=== PATIENT | male | born 2000 | race Two or more races ===

== ENCOUNTER 2020-03-04 16:52 | Emergency (ER) | payer BC ==
[~2020-03-04] VITALS: Ht 175.3 cm; Wt 64.5 kg
--- NOTE | 2020-03-04 17:26 | NUR ---
LPN CMA: PT AMBULATORY WITH STEADY GAIT TO ROOM AT THIS TIME. GARRY
--- NOTE | 2020-03-04 17:43 | NUR ---
ASSUMED CARE OF PATIENT. PATIENT REPORTS HE HAS HAD SOME CHEST PAIN WITH SOB ON AND OFF OVER THE LAST FEW MONTHS. TODAY, PATIENT STARTED FEELING SOME CHEST PRESSURE WITH PALPITATIONS. 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 NSR NOTED. VS STABLE. CALL LIGHT IN PLACE. DR GRANADO IN ROOM. WILL CONTINUE TO MONITOR.
--- NOTE | 2020-03-04 18:14 | NUR ---
PT RESTING IN ROOM. NO ACUTE DISTRESS NOTED. VS STABLE. CALL LIGHT IN PLACE. WILL CONTINUE TO MONITOR.
[2020-03-04 18:23] LABS: BASOPHILS # (AUTO) 0.02 x10^3/uL (0-0.1); BASOPHILS % (AUTO) 0 % (0-1); EOSINOPHILS # (AUTO) 0.01 x10^3/uL (0-0.4); EOSINOPHILS % (AUTO) 0 % (1-7); LYMPHOCYTES # (AUTO) 1.03 x10^3/uL (1-3.4); LYMPHOCYTES % (AUTO) 14 % (22-44); MD NO; MEAN CORPUSCULAR HEMOGLOBIN 32.7 pg (27.5-34.5); MEAN CORPUSCULAR HGB CONC 34.3 g/dL (33.2-36.2); MEAN CORPUSCULAR VOLUME 95.3 fL (81-97); MEAN PLATELET VOLUME 8.9 fL (7.4-10.4); MONOCYTES # (AUTO) 0.48 x10^3/uL (0.2-0.8); MONOCYTES % (AUTO) 7 % (2-9); NEUTROPHILS # (AUTO) 5.71 x10^3/uL (1.8-6.8); NEUTROPHILS % (AUTO) 79 % (42-75); PLATELET COUNT 177 x10^3/uL (130-400); RED BLOOD COUNT 4.91 x10^6/uL (4.38-5.82); RED CELL DISTRIBUTION WIDTH 13.3 % (9.4-14.8)
[2020-03-04 18:31] LABS: ALBUMIN 4.5 g/dL (3.4-5.0); ANION GAP 7 mmol/L (5-15); CALCIUM 9.4 mg/dL (8.5-10.1); CHLORIDE 110 mmol/L (98-107); CREATININE 1.12 mg/dL (0.7-1.3)
[2020-03-04 18:56] VITALS: BP 122/86
--- NOTE | 2020-03-04 18:57 | NUR ---
PT DISCHARGED PER DR GRANADO.
== END 2020-03-04 18:58 | disposition home or self-care (01) ==
LOC: ED 17:55
DX: R00.2 Palpitations (principal); R07.89 Other chest pain; R06.02 Shortness of breath
CPT/HCPCS: 36415; 71045; 80048; 82040; 85025; 85379; 93005; 99285